=== PATIENT | male | born 1970 | race Caucasian/White ===

== ENCOUNTER → 2020-01-29 13:48 | Outpatient (BNVA) | payer OTHER, SELFPAY | PROVIDERS: Family Provider Emergency Medicine Emergency Medical Services; PCP Emergency Medicine Emergency Medical Services; Referring Provider Emergency Medicine Emergency Medical Services; Visit Provider Orthopaedic Surgery | DX: M25.561 Pain in right knee (principal) | CPT/HCPCS: 73560; 73565 ==

== ENCOUNTER → 2020-08-17 14:47 | Outpatient (BNVA) | payer OTHER, SELFPAY | PROVIDERS: Family Provider Emergency Medicine Emergency Medical Services; PCP Emergency Medicine Emergency Medical Services; Referring Provider Emergency Medicine Emergency Medical Services; Visit Provider Specialist | DX: M25.552 Pain in left hip (principal) | CPT/HCPCS: 73502 ==

== ENCOUNTER → 2020-08-19 16:17 | Outpatient (BNVA) | payer OTHER, SELFPAY | PROVIDERS: Family Provider Emergency Medicine Emergency Medical Services; PCP Emergency Medicine Emergency Medical Services; Referring Provider Emergency Medicine Emergency Medical Services; Visit Provider Specialist | DX: M25.562 Pain in left knee (principal) | CPT/HCPCS: 73560; 73565 ==

== ENCOUNTER 2020-08-26 15:21 | Outpatient (RCR) | payer OTHER, SELFPAY | END 2020-08-31 23:59 | disposition home or self-care (01) | LOC: SPT 15:21 | PROVIDERS: PCP Emergency Medicine Emergency Medical Services; Visit Provider Specialist | DX: M25.559 Pain in unspecified hip (principal) | CPT/HCPCS: 97161 ==

== ENCOUNTER 2020-09-01 06:00 | Outpatient (RCR) | payer OTHER, SELFPAY | END 2020-10-01 23:59 | disposition home or self-care (01) | LOC: SPT 06:00 | PROVIDERS: PCP Emergency Medicine Emergency Medical Services; Visit Provider Specialist | DX: M25.559 Pain in unspecified hip (principal) | CPT/HCPCS: 97110; G0283 ==

== ENCOUNTER 2020-09-09 09:16 | Outpatient (CLI) | payer OTHER, SELFPAY ==
--- NOTE | 2020-09-09 | MR_ITS ---
WS: [id number] MRI LEFT KNEE HISTORY: LEFT knee pain for 2 months. No trauma. COMPARISON: 08/19/2020 Anterior cruciate ligament: Intact. Posterior cruciate ligament: Intact. Medial collateral ligament: There is a small amount of fluid surrounding the MCL but no tear. Posterior lateral corner structures: Intact. Medial menisci: Increased signal throughout the body of the posterior horn. No fluid like signal exte nding to an articular surface. No meniscal tear. Lateral meniscus: Intact. Normal signal, size and shape. Extensor mechanism: Distal quadriceps tendon and patellar tendons are intact. Fluid and soft tissue: No significant joint effusion. There is a small amount of edema in the infrapa tellar fat pad. Moderate-sized Lui's cyst extends over a length of 4.8 cm. Osseous and articular structures: Patellofemoral compartment: Cartilage is preserved. Very slight lateral tilting of the patella. There is no marrow edema. Medial compartment: Mild narrowing of the medial compartment. Thinning of the cartilage with a 3 mm d efect along the femoral condyle weightbearing surface. There is a well-circumscribed loose body poste rior to the medial joint measuring 3.6 mm. On the sagittal projection this well-circumscribed loose b jaylin is posterior to the meniscus. Lateral compartment: Mild thinning of the cartilage but no full-thickness defects. No marrow edema. MR/MR knee LT wo con* [id number] IMPRESSION: 1. Moderate Lui's cyst. 2. Mild narrowing of the medial and lateral compartments. 3. Well-circumscribed 3.6 mm loose body posterior to the medial knee joint. Th is may be a cartilaginous loose body as there is a similar sized defect in the cartilage of the medial femoral condyle. 4. No significant suprapatellar joint effusion.
== END 2020-09-09 09:17 | disposition home or self-care (01) ==
LOC: RADSHAW 09:17
PROVIDERS: PCP Emergency Medicine Emergency Medical Services; Visit Provider Specialist
DX: M25.562 Pain in left knee (principal); M71.22 Synovial cyst of popliteal space [Baker], left knee
CPT/HCPCS: 73721

== ENCOUNTER 2020-10-02 06:00 | Outpatient (RCR) | payer OTHER, SELFPAY | END 2020-11-01 23:59 | disposition home or self-care (01) | LOC: SPT 06:00 | PROVIDERS: PCP Emergency Medicine Emergency Medical Services; Visit Provider Specialist | DX: M25.552 Pain in left hip (principal) | CPT/HCPCS: 97110 ==

== ENCOUNTER 2020-11-02 06:00 | Outpatient (RCR) | payer OTHER, SELFPAY | END 2020-11-29 23:59 | disposition home or self-care (01) | LOC: SPT 06:00 | PROVIDERS: PCP Emergency Medicine Emergency Medical Services; Visit Provider Specialist | DX: M25.559 Pain in unspecified hip (principal) | CPT/HCPCS: 97110 ==

== ENCOUNTER 2020-11-30 06:00 | Outpatient (RCR) | payer OTHER, SELFPAY | END 2020-12-30 23:59 | disposition home or self-care (01) | LOC: SPT 06:00 | PROVIDERS: PCP Emergency Medicine Emergency Medical Services; Visit Provider Specialist | DX: M25.552 Pain in left hip (principal) | CPT/HCPCS: 97110 ==

== ENCOUNTER → 2021-01-13 11:56 | Outpatient (BNVA) | payer OTHER, SELFPAY | PROVIDERS: PCP Emergency Medicine Emergency Medical Services; Referring Provider Emergency Medicine Emergency Medical Services; Visit Provider Specialist | DX: M79.604 Pain in right leg (principal) | CPT/HCPCS: 73502 ==

== ENCOUNTER → 2021-02-23 09:50 | Outpatient (BNVA) | payer OTHER, SELFPAY | PROVIDERS: PCP Emergency Medicine Emergency Medical Services; Referring Provider Family Medicine; Visit Provider Orthopaedic Surgery | DX: M48.062 Spinal stenosis, lumbar region with neurogenic claudication (principal) | CPT/HCPCS: 72110 ==

== ENCOUNTER 2021-03-08 11:04 | Outpatient (CLI) | payer OTHER, SELFPAY ==
--- NOTE | 2021-03-08 11:48 | MR_ITS ---
WS: [id number] MRI RIGHT thigh, noncontrast. Multiplanar sequences are performed through the RIGHT thigh. Patient refused contrast due to back diana n. Marker is placed over the area of concern along the anterior lateral upper thigh. This area is not included on all of the sequences submitted. On several of the sequences and there is a 3.1 cm poorly defined mass which corresponds to the palpab le marker. This is very superficial mass corresponds to fat change on all sequences that are included . There is no marrow edema. The visualized bone is normal. MR/MR lower leg RT wo con* [id number] IMPRESSION: 1. Patient refused IV contrast due to pain. 2. Palpable area is only included on a few sequences in the upper lateral RIGHT thigh. This area contains 3.1 cm mass which follows fat on all sequences. Palp able areas probably a lipoma. 3. No marrow edema or muscle edema.
== END 2021-03-08 11:05 | disposition home or self-care (01) ==
LOC: RADSHAW 11:06
PROVIDERS: PCP Emergency Medicine Emergency Medical Services; Visit Provider Specialist
DX: M79.89 Other specified soft tissue disorders (principal)
CPT/HCPCS: 73718

== ENCOUNTER 2021-04-07 06:00 | Outpatient (RCR) | payer OTHER, SELFPAY | END 2021-05-01 23:59 | disposition home or self-care (01) | LOC: SPT 06:00 | PROVIDERS: PCP Emergency Medicine Emergency Medical Services; Referring Provider Specialist; Visit Provider Specialist | DX: M54.5 Low back pain (principal); M25.559 Pain in unspecified hip | CPT/HCPCS: 97110; 97161 ==

== ENCOUNTER 2021-04-19 16:38 | Outpatient (CLI) | payer OTHER, SELFPAY ==
--- NOTE | 2021-04-19 | MR_ITS ---
WS: [id number] MRI RIGHT THIGH with and without CONTRAST. COMPARISON: 03/08/2021 and radiograph 01/13/2021 Multiplanar, multisequence imaging is performed with and without contrast. Markers are placed over the soft tissues of the upper lateral RIGHT thigh. This corresponds to the pa lpable abnormality. There is a very slight bulge in the contour of the overlying subcutaneous fat. Ma rgins of the mass are difficult to identified. This bulging contour corresponds to fat on all sequenc es. On the fat suppression sequences there is suppression as the adjacent fat also suppresses. On the postcontrast images no enhancement is identified. This nodule measures approximately 2.6 x 3.1 cm. T here is no continuity with the adjacent muscles or vascularity. No adenopathy noted at the groin. MR/MR lower leg RT wo/w con [id number] IMPRESSION: Palpable area upon the superior lateral RIGHT thigh corresponds to a fatty tumo r and does not enhance. Most consistent with a lipoma. Without enhancement woul d not expect this to be a liposarcoma. Clinically if this mass is of concern lafleur rgical excision could be performed.
[2021-04-19] MEDS: gadobenate dimeglumine 20 mL vial IV (18:26)
== END 2021-04-19 16:39 | disposition home or self-care (01) ==
LOC: RADSHAW 16:41
PROVIDERS: PCP Emergency Medicine Emergency Medical Services; Visit Provider Specialist
DX: M79.89 Other specified soft tissue disorders (principal)
CPT/HCPCS: 73720; A9577

== ENCOUNTER 2021-05-02 06:00 | Outpatient (RCR) | payer OTHER, SELFPAY | END 2021-06-01 23:59 | disposition home or self-care (01) | LOC: SPT 06:00 | PROVIDERS: PCP Emergency Medicine Emergency Medical Services; Referring Provider Specialist; Visit Provider Specialist | DX: M54.5 Low back pain (principal); M25.559 Pain in unspecified hip | CPT/HCPCS: 97110 ==

== ENCOUNTER 2021-06-02 06:00 | Outpatient (RCR) | payer OTHER, SELFPAY | END 2021-07-01 23:59 | disposition home or self-care (01) | LOC: SPT 06:00 | PROVIDERS: PCP Emergency Medicine Emergency Medical Services; Referring Provider Specialist; Visit Provider Specialist | DX: M25.559 Pain in unspecified hip (principal); M54.5 Low back pain | CPT/HCPCS: 97110 ==

== ENCOUNTER 2021-07-02 06:00 | Outpatient (RCR) | payer OTHER, SELFPAY | END 2021-08-01 23:59 | disposition home or self-care (01) | LOC: SPT 06:00 | PROVIDERS: PCP Emergency Medicine Emergency Medical Services; Visit Provider Specialist | DX: M54.50 Low back pain, unspecified (principal); M25.559 Pain in unspecified hip | CPT/HCPCS: 97110 ==

== ENCOUNTER 2021-07-21 06:00 | Outpatient (RCR) | payer OTHER, SELFPAY | END 2021-08-01 23:59 | disposition home or self-care (01) | LOC: SPT 06:00 | PROVIDERS: PCP Emergency Medicine Emergency Medical Services; Referring Provider Specialist; Visit Provider Specialist | DX: M54.9 Dorsalgia, unspecified (principal); M25.552 Pain in left hip | CPT/HCPCS: 97110; 97161 ==

== ENCOUNTER 2021-08-02 06:00 | Outpatient (RCR) | payer OTHER, SELFPAY | END 2021-08-31 23:59 | disposition home or self-care (01) | LOC: SPT 06:00 | PROVIDERS: PCP Emergency Medicine Emergency Medical Services; Visit Provider Specialist | DX: M54.9 Dorsalgia, unspecified (principal); M25.559 Pain in unspecified hip | CPT/HCPCS: 97110 ==

== ENCOUNTER 2021-08-10 13:31 | Outpatient (CLI) | payer OTHER, SELFPAY ==
--- NOTE | 2021-08-10 13:45 | MR_ITS ---
WS: [id number] MRI LUMBAR SPINE NONCONTRAST HISTORY: M43.10 - Spondylolisthesis, site unspecified COMPARISON: 12/04/2020 TECHNIQUE: Sagittal and axial multisequence imaging is submitted. L5 anterolisthesis by 4.8 mm. Very slight unroofing of the disc. As defects are noted at L5. Remaining lumbar vertebral bodies are normally aligned. No fracture or marrow edema. Mild disc space narrowing and desiccation at L5-S1. Conus terminates normally at L1. L1-L2: Mild facet joint arthritis. No stenosis. L2-L3: Mild facet and ligamentum flavum arthritis. Very mild encroachment of the lateral recesses. No high-grade stenosis. L3-L4: Mild facet and ligamentum flavum hypertrophy. Mild RIGHT and moderate LEFT foraminal stenosis. There is disc contacting the LEFT exiting L3 nerve root. L4-L5: Mild ligamentum flavum and facet arthritis. Mild bilateral foraminal narrowing. L5-S1: Diffuse annular disc bulging with mild osteophytic ridging. Disc contacts the ventral thecal s ac and there is an associated annular fissure. Moderate facet and ligamentum flavum hypertrophy. Larg e osteophyte from the LEFT articular facet encroaches into the thecal sac contacting and displacing t he nerve roots. There is disc contacting the exiting nerve roots bilaterally slightly greater on the LEFT. Large RIGHT renal cyst measures at least 5.5 cm. MR/MR lumbar spine wo con* [id number] IMPRESSION: 1. Grade 1 spondylolisthesis and spondylolysis of L5. 2. Moderate facet joint and ligamentum flavum hypertrophy at L5-S1. Osteophyt es from the LEFT articular facets encroach into the thecal sac contacting the n erve roots. 3. Disc contacts the exiting L5 nerve roots, LEFT greater than RIGHT. 4. Disc contacts the LEFT exiting L3 nerve root. 5. Moderate LEFT foraminal stenosis at L3-4. 6. Mild foraminal narrowing at L4-5.
== END 2021-08-10 13:32 | disposition home or self-care (01) ==
LOC: RADSHAW 13:35
PROVIDERS: PCP Emergency Medicine Emergency Medical Services; Visit Provider Orthopaedic Surgery
DX: M43.16 Spondylolisthesis, lumbar region (principal); M47.816 Spondylosis without myelopathy or radiculopathy, lumbar region; M25.78 Osteophyte, vertebrae; M48.061 Spinal stenosis, lumbar region without neurogenic claudication
CPT/HCPCS: 72148

== ENCOUNTER 2021-09-01 06:00 | Outpatient (RCR) | payer OTHER, SELFPAY | END 2021-10-01 23:59 | disposition home or self-care (01) | LOC: SPT 06:00 | PROVIDERS: PCP Emergency Medicine Emergency Medical Services; Visit Provider Specialist | DX: M25.552 Pain in left hip (principal); M54.59 Other low back pain | CPT/HCPCS: 97110 ==

== ENCOUNTER 2021-10-02 06:00 | Outpatient (RCR) | payer OTHER, SELFPAY | END 2021-11-01 23:59 | disposition home or self-care (01) | LOC: SPT 06:00 | PROVIDERS: PCP Emergency Medicine Emergency Medical Services; Visit Provider Specialist | DX: M25.552 Pain in left hip (principal); M54.59 Other low back pain | CPT/HCPCS: 97110 ==

== ENCOUNTER 2024-02-01 13:31 | Oncology outpatient (recurring) (ONCR) | payer OTHER, SELFPAY ==
[2024-02-01 14:25] LABS: Basophils # 0.1 10^3/uL (0.0-0.1); Basophils % 0.3 %; Eosinophils # 0.2 10^3/uL (0.0-0.8); Eosinophils % 0.7 %; Hematocrit 41.1 % (37-53); Lymphocytes # 22.8 10^3/uL (0.8-4.8); Lymphocytes % 81.5 %; Mean Corpuscular HGB Conc 34.5 g/dL (30-55); Mean Corpuscular Hemoglobin 30.3 pg (27-33); Mean Corpuscular Volume 87.8 fl (82-101); Mean Platelet Volume 10.5 fL (7.4-10.4); Monocytes # 0.6 10^3/uL (0.2-0.9); Monocytes % 2.3 %; Neutrophils # 4.21 10^3/uL (1.8-7.7); Neutrophils % 14.9 %; Nucleated Red Blood Cells # 0.1 /100WBC; Nucleated Red Blood Cells % 0.4 %; Platelet Count 113 10^3/cmm (157-399); Red Blood Count 4.68 10^6/uL (3.85-5.65); Red Cell Distribution Width 14.2 % (12.1-15.1); White Blood Count 27.96 10^3/uL (3.29-11.43)
[2024-02-01 14:46] LABS: Albumin Level 4.2 g/dL (3.5-5.2); Alkaline Phosphatase 72 U/L (40-130); Blood Urea Nitrogen 14 mg/dL (6-20); Calcium 8.8 mg/dL (8.5-10.5); Carbon Dioxide 25 mmol/L (22-29); Chloride 104 mmol/L (98-107); Creatinine Clr Calc Pharmacy 146.9466; Globulin 2.3 g/dL (1.3-4.6); Glomerular Filtration Rate 101.5 mL/min (90-130); Glucose 138 mg/dL (65-115); Osmolality Calculated 289 mOsm/kg (285-295); Sodium 138 mmol/L (136-145); Total Bilirubin 0.6 mg/dL (0.15-1.2); Total Protein 6.5 g/dL (6.6-8.7)
[2024-02-01 14:54] LABS: Anion Gap 12.9 (5-19); Potassium 3.9 mmol/L (3.5-5.1)
[2024-02-01 14:58] LABS: Alanine Aminotransferase < 5 U/L (0-41); Aspartate Amino Transferase 5 U/L (0-40)
[2024-02-01 15:05] LABS: Slide Review Slide Review Perform
[2024-02-02 13:31] LABS: Leukemia Profile (BBPL) See Report
== END 2024-03-01 23:59 | disposition home or self-care (01) ==
PROVIDERS: Internal Medicine Hematology & Oncology; PCP Emergency Medicine Emergency Medical Services; Visit Provider Internal Medicine Medical Oncology
DX: D72.820 Lymphocytosis (symptomatic) (principal); M79.89 Other specified soft tissue disorders
CPT/HCPCS: 36415; 80053; 85025; 88184; 88185; 99203

== ENCOUNTER 2024-03-25 08:46 | Oncology outpatient (recurring) (ONCR) | payer OTHER, SELFPAY ==
[2024-03-04 11:30] LABS: Basophils # 0.1 10^3/uL (0.0-0.1); Basophils % 0.3 %; Eosinophils # 0.2 10^3/uL (0.0-0.8); Eosinophils % 0.5 %; Hematocrit 41.1 % (37-53); Lymphocytes # 25.6 10^3/uL (0.8-4.8); Lymphocytes % 83.7 %; Mean Corpuscular HGB Conc 33.6 g/dL (30-55); Mean Corpuscular Hemoglobin 29.6 pg (27-33); Mean Platelet Volume 10.3 fL (7.4-10.4); Monocytes # 0.8 10^3/uL (0.2-0.9); Monocytes % 2.6 %; Neutrophils % 12.7 %; Nucleated Red Blood Cells % 0 %; Platelet Count 101 10^3/cmm (157-399); Red Blood Count 4.67 10^6/uL (3.85-5.65)
[2024-03-04 11:47] LABS: Alanine Aminotransferase 15 U/L (0-41); Albumin Level 4.4 g/dL (3.5-5.2); Alkaline Phosphatase 71 U/L (40-130); Anion Gap 10.3 (5-19); Aspartate Amino Transferase 18 U/L (0-40); Blood Urea Nitrogen 18 mg/dL (6-20); Calcium 8.5 mg/dL (8.5-10.5); Carbon Dioxide 27 mmol/L (22-29); Chloride 107 mmol/L (98-107); Globulin 2.3 g/dL (1.3-4.6); Glomerular Filtration Rate 101.5 mL/min (90-130); Glucose 99 mg/dL (65-115); Osmolality Calculated 292 mOsm/kg (285-295); Potassium 4.3 mmol/L (3.5-5.1); Sodium 140 mmol/L (136-145); Total Bilirubin 0.7 mg/dL (0.15-1.2); Total Protein 6.7 g/dL (6.6-8.7)
[2024-03-04 12:03] LABS: Slide Review Slide Review Perform; White Blood Count 30.61 10^3/uL (3.29-11.43)
[2024-03-04 12:46] LABS: Lactate Dehydrogenase 190 U/L (135-225)
[2024-03-12 07:32] LABS: CLL Prognostic Panel (BBPL) See Report
--- NOTE | 2024-03-25 10:00 | CTR_ITS ---
PROCEDURE INFORMATION: Exam: CT Chest With Contrast; Diagnostic Exam date and time: 03/25/2024 10:12 AM Age: 53 years old Clinical indication: Condition or disease; Other: Lymphoma; Additional info: Staging TECHNIQUE: Imaging protocol: Diagnostic computed tomography of the chest with contrast. Radiation optimization: All CT scans at this facility use at least one of these dose optimization techniques: automated exposure control; mA and/or kV adjustment per patient size (includes targeted exams where dose is matched to clinical indication); or iterative reconstruction. Contrast material: OMNI 350; Contrast volume: 100 ml; Contrast route: INTRAVENOUS (IV); COMPARISON: No relevant prior studies available. RADIATION DOSE METRICS: Total DLP (mGy-cm): 1523.18 FINDINGS: Thyroid: Grossly unremarkable. Lungs: No focal consolidation. Pleural spaces: No pleural effusion. No pneumothorax. Heart: No cardiomegaly. No pericardial effusion. Mediastinum/nodes: There are multiple mildly prominent mediastinal and hilar nodes including a mildly enlarged 11 mm short axis paraesophageal node (image 29 of series 3). Trachea and central airways are grossly patent. There is bilateral axillary adenopathy. For example, on the left, there is a 21 mm short axis node (image 14 of series 3). There is prepectoral and retroclavicular adenopathy as well. The supraclavicular fossa is beyond the field of view. Vasculature: Mild aneurysmal dilatation of the ascending thoracic aorta to 4.2 cm. No evidence of dissection. Though this study is not tailored to evaluate for pulmonary thromboembolism, there is no evidence of PE within limitations of respiratory motion. Bones/joints: No evidence of acute fracture or aggressive osseous lesion. Soft tissues: No fluid collection or hematoma in the superficial soft tissues. PROCEDURE INFORMATION: Exam: CT Abdomen And Pelvis With Contrast Exam date and time: 03/25/2024 10:12 AM Age: 53 years old Clinical indication: Condition or disease; Other: Lymphoma; Additional info: Staging TECHNIQUE: Imaging protocol: Computed tomography of the abdomen and pelvis with contrast. Radiation optimization: All CT scans at this facility use at least one of these dose optimization techniques: automated exposure control; mA and/or kV adjustment per patient size (includes targeted exams where dose is matched to clinical indication); or iterative reconstruction. Contrast material: OMNI 350; Contrast volume: 100 ml; Contrast route: INTRAVENOUS (IV); COMPARISON: CR XR hip RT 2-3V wo/w pel* [id number] 01/13/2021 12:02 PM RADIATION DOSE METRICS: Total DLP (mGy-cm): 1523.18 FINDINGS: Liver: Hepatomegaly and hepatic steatosis with right lobe measuring up to 24 cm. No evidence of focal hepatic lesion. There has an indeterminate 11 mm segment IV hepatic hypodensity raising the question of a metastatic lesion. Additional faint subcentimeter hypodensity in the right hepatic lobe (image 31 of series 5). Gallbladder and biliary ducts: Unremarkable. No intra-hepatic or extra-hepatic biliary dilatation. Pancreas: Unremarkable. Spleen: Enlarged measuring up to 18.8 cm in length. Adrenal glands: Indeterminate nodular thickening of the left adrenal gland. Consider follow-up outpatient MRI of the abdomen with/without contrast. Kidneys and ureters: There are simple appearing renal cysts for which dedicated imaging follow-up is not required. Otherwise no evidence of renal parenchymal abnormality. No hydronephrosis or ureteral stone. Stomach and bowel: No evidence of bowel obstruction or perienteric inflammatory changes. Appendix: Normal appendix. Intraperitoneal space: No evidence of free air or fluid collection. Vasculature: No aneurysmal dilatation or dissection of the abdominal aorta. The celiac trunk, SMA and SAMMI are grossly patent. No evidence of IVC thrombus. The portal vein, SMV and splenic veins are grossly patent. Lymph nodes: There is extensive adenopathy throughout the abdomen and pelvis including mesenteric, mali hepatic, portacaval, gastrohepatic, retroperitoneal and iliac chain bilaterally. Urinary bladder: Grossly unremarkable. Reproductive: Grossly unremarkable. Bones/joints: No evidence of acute fracture or aggressive osseous lesion. Chronic L5 pars defects with mild grade 1 anterolisthesis of L5 on S1. There is moderate-severe bilateral foraminal stenosis at this level, particularly of the left where there is suspected impingement of the exiting left L5 nerve root. Soft tissues: No evidence of fluid collection or hematoma in the superficial soft tissues. CT/CT chest abdpel w/*[id number] IMPRESSION: 1. Mediastinal, axillary, prepectoral and retroclavicular adenopathy. 2. Mild aneurysmal dilatation of the ascending thoracic aorta. IMPRESSION: 1. Adenopathy throughout the abdomen and pelvis. 2. Splenomegaly raising the question of an infiltrative process. 3. Indeterminate hepatic hypodensities and nodular thickening of the left adrenal gland. Consider follow-up MRI of the abdomen with/without contrast to evaluate for metastatic disease.
[2024-03-25] MEDS: iohexol 350 mg/mL 500 mL Btl (per mL) IV (10:20)
[2024-03-25] MEDS: iohexol 350 mg/mL 500 mL Btl (per mL) PO (10:20)
== END 2024-03-31 23:59 | disposition home or self-care (01) ==
LOC: ONCMED 04-16 07:40
PROVIDERS: Nurse Practitioner Family; PCP Emergency Medicine Emergency Medical Services; Visit Provider Nurse Practitioner Family
DX: Z53.9 Procedure and treatment not carried out, unspecified reason (principal); C91.10 Chronic lymphocytic leukemia of B-cell type not having achieved remission; R59.0 Localized enlarged lymph nodes; R16.1 Splenomegaly, not elsewhere classified; R93.2 Abnormal findings on diagnostic imaging of liver and biliary tract
CPT/HCPCS: 36415; 71260; 74177; 80053; 81263; 82232; 83615; 85025; 88185; 88264; 88271; 88367; 88374; 99214; Q9967

== ENCOUNTER 2024-04-02 12:19 | Outpatient (CLI) | payer OTHER, SELFPAY ==
--- NOTE | 2024-04-02 12:00 | PETR_ITS ---
PROCEDURE INFORMATION: Exam: PET/CT Skull Base to Mid-thigh Exam date and time: 04/02/2024 12:22 PM Age: 53 years old Clinical indication: Condition or disease; Primary cancer: Cll; Initial oncological staging assessment; Additional info: Initial cll staging LABS AND CLINICAL REPORTS: Glucose: 90 mg/dl Treatment strategy for malignancy (PET staging): Initial Staging (PI) TECHNIQUE: Imaging protocol: Following at least four-hour fasting and following the injection of radiopharmaceutical, low dose CT images were obtained. Then, PET images were obtained. Attenuation corrected images were constructed using the CT scan. Fused images of PET and CT were reviewed. The standardized uptake values (SUV) reported below are maximum values within a region of interest, expressed in gm/ml. Exam includes orbital meatal line to mid-thigh. Radiopharmaceutical: 13.1 mCi F-18 FDG (Fluorodeoxyglucose), IV. Time of imaging post radiopharmaceutical administration: 1 hour Injection site: Left antecubital COMPARISON: CT chest abdpel w/*[id number] 03/25/2024 10:12 AM FINDINGS: Brain: Visualized brain has normal physiologic uptake. Paranasal sinuses: Non radiotracer avid lobulated mucosal thickening in the medial left maxillary sinus measuring 1.1 cm on series 3, image 18 is consistent with a benign mucous retention cyst or polyp. Pharynx: No abnormal uptake. Larynx: No abnormal uptake. Lungs, pleura and trachea: No abnormal uptake. Heart: Normal physiologic uptake. Mediastinal space: No abnormal uptake. Liver: No abnormal uptake. Gallbladder and biliary ducts: No abnormal uptake. Pancreas: No abnormal uptake. Spleen: No abnormal uptake. Moderate splenomegaly. Adrenal glands: Nodularity of the left adrenal gland is noted without elevated uptake likely representing adenomas measuring up to 1.4 cm on series 3, image 157. Unremarkable right adrenal gland. Kidneys and ureters: Normal physiologic uptake. Rounded low-density structures arising from both kidneys likely represent benign cysts. Stomach and bowel: No abnormal uptake. Vasculature: No abnormal uptake. Lymph nodes: Lymphadenopathy in the neck, chest, abdomen and pelvis is noted. Bilateral cervical lymphadenopathy is noted. Examples: Posterior to the left sternocleidomastoid muscle measuring 2.3 x 1.7 cm on series 3, image 39, SUV max 1.1; left supraclavicular region measuring 1.3 x 2.0 cm on series 3, image 53, SUV max 1.0. Bilateral axillary, and subpectoral lymphadenopathy is noted. Examples: Right subpectoral region measuring 2.6 x 1.8 cm on image 78, SUV max 1.0; left axilla measuring 2.8 x 1.3 cm on image 93, SUV max 0.9. Small non radiotracer avid and non pathologically enlarged mediastinal lymph nodes are present. A right retrocrural 1.3 cm lymph node on image 158 is present, SUV max 2.1. Lymphadenopathy in the region of the mali hepatis, portacaval region, gastro [place] region, retroperitoneum and mesenteric fat is present. Examples: Portacaval region measuring 4.3 x 2.5 cm on series 3, image 154, SUV max 2.2; retroperitoneal region anterior to the distal abdominal aorta measuring 3.4 x 1.8 cm on image 191, SUV max 1.5. Enlarged bilateral iliac chain lymph nodes are identified. Examples: Right common iliac chain measuring 2.6 x 2.1 cm on image 216, SUV max 2.1; left external iliac chain measuring 2.9 x 1.5 cm on image 244, SUV max 1.9. Skeleton: No abnormal uptake in the visualized axial and appendicular skeleton. Degenerative changes in the spine are present. Bilateral L5 pars defects are noted. Soft tissues: No abnormal uptake in the visualized head, neck, chest, abdomen, pelvis, and extremities. An uncomplicated appearing small fat containing umbilical hernia is noted. METRICS: Mediastinal blood pool: SUV max 2.2, SUV mean of 1.8 Liver uptake: SUV max 3.1, SUV mean 2.3 PET/PET skull to thigh INIT [id number] IMPRESSION: 1. Lymphadenopathy throughout the neck, chest, abdomen and pelvis is noted with low-level uptake similar to or less than mediastinal blood pool activity. 2. Splenomegaly without elevated uptake. 3. Additional nonurgent findings as detailed above. Deauville Scorin: No uptake 2: Uptake < or = mediastinal blood pool (max SUV) 3: Uptake > mediastinal blood pool (max SUV) but < or = liver (max SUV) 4: Uptake moderately higher than liver (uptake > maximum SUV of the liver) 5: Uptake markedly higher than liver (uptake 2-3x > maximum SUV of the liver) and/or new lesions
== END 2024-04-02 12:20 | disposition home or self-care (01) ==
LOC: RAD 12:19
PROVIDERS: PCP Emergency Medicine Emergency Medical Services; Visit Provider Internal Medicine Medical Oncology
DX: C91.10 Chronic lymphocytic leukemia of B-cell type not having achieved remission (principal); R59.0 Localized enlarged lymph nodes; R16.1 Splenomegaly, not elsewhere classified
CPT/HCPCS: 78815; A9552

== ENCOUNTER 2024-04-18 12:22 | Oncology outpatient (recurring) (ONCR) | payer OTHER, SELFPAY ==
[2024-04-18 13:08] LABS: Basophils # 0.1 10^3/uL (0.0-0.1); Basophils % 0.3 %; Eosinophils # 0.2 10^3/uL (0.0-0.8); Eosinophils % 0.6 %; Hematocrit 41.2 % (37-53); Lymphocytes # 24.1 10^3/uL (0.8-4.8); Lymphocytes % 83.2 %; Mean Corpuscular HGB Conc 33.3 g/dL (30-55); Mean Corpuscular Hemoglobin 29.1 pg (27-33); Mean Corpuscular Volume 87.7 fl (82-101); Mean Platelet Volume 10.7 fL (7.4-10.4); Monocytes # 0.8 10^3/uL (0.2-0.9); Monocytes % 2.8 %; Neutrophils # 3.72 10^3/uL (1.8-7.7); Neutrophils % 12.9 %; Nucleated Red Blood Cells % 0 %; Platelet Count 95 10^3/cmm (157-399); Red Cell Distribution Width 13.8 % (12.1-15.1)
[2024-04-18 13:27] LABS: Alanine Aminotransferase 18 U/L (0-41); Albumin Level 4.6 g/dL (3.5-5.2); Alkaline Phosphatase 69 U/L (40-130); Anion Gap 12.7 (5-19); Aspartate Amino Transferase 22 U/L (0-40); Blood Urea Nitrogen 17 mg/dL (6-20); Calcium 9.1 mg/dL (8.5-10.5); Carbon Dioxide 26 mmol/L (22-29); Chloride 106 mmol/L (98-107); Globulin 2.3 g/dL (1.3-4.6); Glomerular Filtration Rate 101.5 mL/min (90-130); Glucose 86 mg/dL (65-115); Lactate Dehydrogenase 264 U/L (135-225); Osmolality Calculated 291 mOsm/kg (285-295); Potassium 4.7 mmol/L (3.5-5.1); Sodium 140 mmol/L (136-145); Total Bilirubin 0.7 mg/dL (0.15-1.2); Total Protein 6.9 g/dL (6.6-8.7)
== END 2024-05-01 23:59 | disposition home or self-care (01) ==
PROVIDERS: Internal Medicine Medical Oncology; PCP Emergency Medicine Emergency Medical Services; Visit Provider Nurse Practitioner Family
DX: C91.10 Chronic lymphocytic leukemia of B-cell type not having achieved remission
CPT/HCPCS: 36415; 80053; 83615; 85025; 99214

== ENCOUNTER 2024-07-15 09:58 | Oncology outpatient (recurring) (ONCR) | payer OTHER, SELFPAY ==
[2024-07-15 10:30] LABS: Basophils # 0.2 10^3/uL (0.0-0.1); Basophils % 0.4 %; Eosinophils # 0.2 10^3/uL (0.0-0.8); Eosinophils % 0.5 %; Hematocrit 42.8 % (37-53); Lymphocytes # 39.6 10^3/uL (0.8-4.8); Lymphocytes % 87.7 %; Mean Corpuscular HGB Conc 33.2 g/dL (30-55); Mean Corpuscular Volume 90.3 fl (82-101); Mean Platelet Volume 10.5 fL (7.4-10.4); Monocytes # 0.7 10^3/uL (0.2-0.9); Monocytes % 1.5 %; Neutrophils % 9.7 %; Nucleated Red Blood Cells % 0 %; Platelet Count 89 10^3/cmm (157-399); Red Blood Count 4.74 10^6/uL (3.85-5.65)
[2024-07-15 10:52] LABS: Alanine Aminotransferase 17 U/L (0-41); Albumin Level 4.5 g/dL (3.5-5.2); Alkaline Phosphatase 76 U/L (40-130); Anion Gap 13.5 (5-19); Aspartate Amino Transferase 22 U/L (0-40); Blood Urea Nitrogen 13 mg/dL (6-20); Calcium 8.8 mg/dL (8.5-10.5); Carbon Dioxide 26 mmol/L (22-29); Chloride 106 mmol/L (98-107); Creatinine Clr Calc Pharmacy 145.9761; Globulin 2.1 g/dL (1.3-4.6); Glomerular Filtration Rate 101.5 mL/min (90-130); Glucose 138 mg/dL (65-115); Lactate Dehydrogenase 199 U/L (135-225); Osmolality Calculated 294 mOsm/kg (285-295); Potassium 4.5 mmol/L (3.5-5.1); Sodium 141 mmol/L (136-145); Total Bilirubin 0.7 mg/dL (0.15-1.2); Total Protein 6.6 g/dL (6.6-8.7)
[2024-07-15 11:11] LABS: White Blood Count 45.21 10^3/uL (3.29-11.43)
[2024-07-15 11:14] LABS: Slide Review Slide Review Perform
== END 2024-08-01 23:59 | disposition home or self-care (01) ==
PROVIDERS: Internal Medicine Medical Oncology; PCP Emergency Medicine Emergency Medical Services; Visit Provider Nurse Practitioner Family
DX: C91.10 Chronic lymphocytic leukemia of B-cell type not having achieved remission (principal)
CPT/HCPCS: 36415; 80053; 83615; 85025; 99214